=== PATIENT | female | born 1975 | race Caucasian/White ===

== ENCOUNTER 2016-12-16 14:28 | Emergency (ER) | payer MEDICAID ==
[~2016-12-16] VITALS: Ht 160 cm; Wt 66.2 kg
[~2016-12-16 14:28] MED LIST: AMOX500C2 PO; ASPI81CH43; BUTAPT; COROSUS EACH EAR; FLUD0.1T2 OR; HYDR12.56; MOTRIN PO; VARE0.5P4
[2016-12-16 15:11] LABS: Basophils # (auto) 0 uL; Basophils % (auto) 0.3 % (0.0-2.0); CONDITION Y; Eosinophils # (auto) 0.3 uL; Eosinophils % (auto) 3.8 % (0.0-7.0); Hematocrit 41.9 % (36.0-46.0); Hemoglobin 14.3 g/dL (12.2-16.2); Lymphocytes # (auto) 2.5 uL; Lymphocytes % (auto) 27.8 % (10.0-50.0); Mean Corpuscular Hemoglobin 31.8 pg (28.0-32.0); Mean Corpuscular Hgb Conc. 34.1 g/dL (32.0-36.0); Mean Corpuscular Volume 93.1 fL (80.0-100.0); Mean Platelet Volume 7.4 fL (7.4-10.4); Monocytes # (auto) 0.5 uL; Monocytes % (auto) 5.4 % (0.0-12.0); Neutrophils # (auto) 5.7 uL; Neutrophils % (auto) 62.7 % (37.0-80.0); Platelet Count (auto) 330 10^3/uL (140-450); Red Cell Distribution Width 13.4 % (11.6-16.0); White Blood Cell 9.1 10^3/uL (4.4-10.8)
[2016-12-16 15:23] LABS: Urine Bilirubin Negative (Negative); Urine Color Yellow (Yellow); Urine Glucose Normal (Normal); Urine Ketone Negative (Negative); Urine Mucus FEW (None Seen); Urine Nitrite Negative (Negative); Urine RBC 13 /hpf (0 - 4); Urine Squamous Epithelial Cell MOD /hpf (<5)
[2016-12-16 15:24] LABS: Urine Blood 1+ /uL (Negative)
[2016-12-16 15:42] LABS: Anion Gap 8 (5-15); Aspartate Aminotransferase 10 U/L (15-37); BUN/Creatinine Ratio 16.7; Blood Urea Nitrogen 11 mg/dL (7-18); Calcium 8.3 mg/dL (8.5-10.1); Carbon Dioxide 27 mmol/L (21-32); Chloride 109 mmol/L (98-107); GFR African American 126 mL/min; GFR Non-African American 104 mL/min; Glucose 85 mg/dL (74-106); Potassium 3.7 mmol/L (3.5-5.1); Sodium 144 mmol/L (136-145)
[2016-12-16 15:47] LABS: Alkaline Phosphatase 72 U/L (45-117); Bilirubin, Total 0.3 mg/dL (0.2-1.0); Total Protein 7.3 g/dL (6.4-8.2)
[2016-12-16] MEDS ORDERED: IOHEXOL 350 MG/ML 100ML IJ ONE (20:36)
[2016-12-16 20:53] VITALS: BP 117/68
== END 2016-12-16 23:19 | disposition home or self-care (01) ==
LOC: ER 14:28
DX: R06.00 Dyspnea, unspecified (principal); I10 Essential (primary) hypertension; Z95.0 Presence of cardiac pacemaker; Z79.82 Long term (current) use of aspirin; F17.210 Nicotine dependence, cigarettes, uncomplicated; R53.1 Weakness; I25.2 Old myocardial infarction; Z79.899 Other long term (current) drug therapy
CPT/HCPCS: 36415; 71020; 71260; 80053; 81001; 84484; 85025; 85379; 93005; 94761; 99285; Q9967

== ENCOUNTER 2018-05-15 17:50 | Emergency (ER) | payer MEDICAID ==
[~2018-05-15] VITALS: Ht 162.6 cm; Wt 64.4 kg
[2018-05-15 19:41] LABS: Basophils # (auto) 0.1 uL; Basophils % (auto) 0.7 % (0.0-2.0); Eosinophils # (auto) 0.5 uL; Eosinophils % (auto) 5.2 % (0.0-7.0); Hematocrit 42.9 % (36.0-46.0); Hemoglobin 14.7 g/dL (12.2-16.2); Lymphocytes % (auto) 33.6 % (10.0-50.0); Mean Corpuscular Hemoglobin 32.2 pg (28.0-32.0); Mean Corpuscular Hgb Conc. 34.3 g/dL (32.0-36.0); Mean Corpuscular Volume 93.8 fL (80.0-100.0); Monocytes # (auto) 0.5 uL; Monocytes % (auto) 5.6 % (0.0-12.0); Neutrophils # (auto) 4.9 uL; Neutrophils % (auto) 54.9 % (37.0-80.0); Nucleated Red Blood Cells % 0.1 %; Platelet Count (auto) 335 10^3/uL (140-450); Red Blood Cells 4.58 10^6/uL (4.0-5.20); Red Cell Distribution Width 13.2 % (11.8-14.3)
[2018-05-15] MEDS ORDERED: SODIUM CHLORIDE 0.9% 1,000 ML IVB ONE (19:45)
[2018-05-15 19:50] LABS: Urine WBC None Seen /hpf (0 - 5)
[2018-05-15 19:59] LABS: Albumin 4.2 g/dL (3.4-5.0); Anion Gap 8 (5-15); Calcium 8.7 mg/dL (8.5-10.1); Carbon Dioxide 26 mmol/L (21-32); Chloride 106 mmol/L (98-107); Glucose 89 mg/dL (74-106); Potassium 4.2 mmol/L (3.5-5.1); Sodium 140 mmol/L (136-145)
[2018-05-15 20:07] LABS: Urine Bacteria NONE SEEN /hpf (None Seen); Urine Blood 1+ /uL (Negative); Urine Specific Gravity 1.012 (1.001-1.035)
[2018-05-15 20:08] LABS: Alanine Aminotransferase 39 U/L (13-56); Alkaline Phosphatase 91 U/L (45-117); Aspartate Aminotransferase 15 U/L (15-37); BUN/Creatinine Ratio 18.1; Bilirubin, Total 0.3 mg/dL (0.2-1.0); Blood Urea Nitrogen 13 mg/dL (7-18); GFR African American 113 mL/min; GFR Non-African American 94 mL/min; Total Protein 8.1 g/dL (6.4-8.2)
[2018-05-15 20:18] LABS: INR 0.89 (0.9-1.15); Partial Thromboplastin Time 27.1 sec (23.78-33.04); Prothrombin Time 9.6 sec (9.27-12.13)
[2018-05-15] MEDS ORDERED: IBUPROFEN 600 MG TAB PO ONE (23:00)
[2018-05-16 00:31] VITALS: BP 111/68
== END 2018-05-16 01:25 | disposition home or self-care (01) ==
LOC: ER 17:50
DX: R07.9 Chest pain, unspecified (principal); R42 Dizziness and giddiness; I10 Essential (primary) hypertension; I25.2 Old myocardial infarction; F17.210 Nicotine dependence, cigarettes, uncomplicated; Z95.0 Presence of cardiac pacemaker
CPT/HCPCS: 36415; 71045; 80053; 81001; 81002; 83735; 83880; 84443; 84484; 85025; 85610; 85730; 93005; 94761; 96360; 99284; J7030

== ENCOUNTER 2022-12-26 16:49 | Emergency (ER) | payer MEDICAID ==
[~2022-12-26] VITALS: Ht 160 cm; Wt 75.0 kg
[~2022-12-26 16:49] MED LIST changes: -HYDR12.56; +HYDR12.59
[2022-12-26 17:20] VITALS: PULSE 60; O2SAT 96
[2022-12-26 17:26] VITALS: BP 120/52; RESP 18; TEMP 97.3; O2SAT 96
[2022-12-26 17:27] LABS: Basophils # (auto) 0.1 10 ^3/uL (0-0.2); Basophils % (auto) 1.1 % (0.0-2.0); Eosinophils # (auto) 0.5 10 ^3/uL (0-0.8); Eosinophils % (auto) 7.1 % (0.0-7.0); Hematocrit 41.4 % (36.0-46.0); Hemoglobin 14.2 g/dL (12.2-16.2); Lymphocytes % (auto) 39.6 % (10.0-50.0); Mean Corpuscular Hemoglobin 30.9 pg (28.0-32.0); Mean Corpuscular Hgb Conc. 34.2 g/dL (32.0-36.0); Mean Corpuscular Volume 90.5 fL (80.0-100.0); Monocytes # (auto) 0.5 10 ^3/uL (0-1.3); Neutrophils # (auto) 3.5 10 ^3/uL (1.6-8.6); Neutrophils % (auto) 46.2 % (37.0-80.0); Nucleated Red Blood Cells % 0.1 %; Red Blood Cells 4.58 10^6/uL (4.0-5.20); Red Cell Distribution Width 13.4 % (11.8-14.3); White Blood Cell 7.6 10^3/uL (4.4-10.8)
[2022-12-26 17:43] LABS: Calcium 9.4 mg/dL (8.5-10.1); Magnesium 2.5 mg/dL (1.6-2.6); Potassium 4.1 mmol/L (3.5-5.1)
[2022-12-26 17:47] LABS: BUN/Creatinine Ratio 15.5 (10.0-20.0); Bilirubin, Total 0.3 mg/dL (0.2-1.0)
[2022-12-26 18:10] VITALS: PULSE 61
[2022-12-26 18:58] LABS: Urine WBC None Seen /hpf (0 - 5)
[2022-12-26 19:12] LABS: Urine Bacteria NONE SEEN /hpf (None Seen); Urine Blood TRACE /uL (Negative); Urine Hyaline Cast FEW /lpf (0 - 2); Urine Specific Gravity 1.004 (1.001-1.035)
[2022-12-26] MEDS ORDERED: MELO-335 PO (19:23)
[2022-12-26] MEDS ORDERED: CYCL-839 PO (19:23)
[2022-12-26] MEDS ORDERED: CYCLOBENZAPRINE HCL 10 MG TAB PO ONE (19:30)
== END 2022-12-26 19:58 | disposition home or self-care (01) ==
LOC: ER 16:49
DX: M94.0 Chondrocostal junction syndrome [Tietze] (principal); I10 Essential (primary) hypertension; Z79.82 Long term (current) use of aspirin; Z79.899 Other long term (current) drug therapy
CPT/HCPCS: 36415; 71045; 80053; 81001; 83735; 84484; 85025; 93005

== ENCOUNTER 2023-03-29 18:56 | Inpatient (IN) | payer MEDICAID ==
[~2023-03-29] VITALS: Ht 160 cm; Wt 73.9 kg
[~2023-03-29 18:56] MED LIST changes: +CYCL-839 PO; +MELO-335 PO
[2023-03-29 18:58] VITALS: BP 106/66; PULSE 84; RESP 18; O2SAT 97
[2023-03-29] MEDS ORDERED: PANTOPRAZOLE 40 MG/10 ML VIAL INJ IV ONE ×2 (19:30→20:34)
[2023-03-29] MEDS ORDERED: SODIUM CHLORIDE 0.9% 1,000 ML IV ONE (19:30)
[2023-03-29 20:01] LABS: Basophils # (auto) 0.1 10 ^3/uL (0-0.2); Eosinophils # (auto) 0.4 10 ^3/uL (0-0.8); Eosinophils % (auto) 5.5 % (0.0-7.0); Hematocrit 41.2 % (36.0-46.0); Lymphocytes # (auto) 3.5 10 ^3/uL (0.4-5.4); Lymphocytes % (auto) 44.8 % (10.0-50.0); Mean Corpuscular Hemoglobin 31.5 pg (28.0-32.0); Mean Corpuscular Hgb Conc. 33.8 g/dL (32.0-36.0); Monocytes # (auto) 0.5 10 ^3/uL (0-1.3); Monocytes % (auto) 5.9 % (0.0-12.0); Neutrophils # (auto) 3.3 10 ^3/uL (1.6-8.6); Neutrophils % (auto) 42.8 % (37.0-80.0); Nucleated Red Blood Cells % 0.1 %; Red Blood Cells 4.43 10^6/uL (4.0-5.20); Red Cell Distribution Width 13.6 % (11.8-14.3); White Blood Cell 7.8 10^3/uL (4.4-10.8)
[2023-03-29 20:23] LABS: Alanine Aminotransferase 20 U/L (7-40); Albumin 4.7 g/dL (3.2-4.8); Alkaline Phosphatase 88 U/L (46-116); Anion Gap 7 (5-15); Aspartate Aminotransferase 9 U/L (13-40); BUN/Creatinine Ratio 9.7 (10.0-20.0); Bilirubin, Total 0.2 mg/dL (0.2-1.0); Blood Urea Nitrogen 7 mg/dL (9-23); Calcium 9.8 mg/dL (8.5-10.1); Carbon Dioxide 28 mmol/L (20-30); Chloride 108 mmol/L (98-107); Glucose 104 mg/dL (74-106); Potassium 4.2 mmol/L (3.5-5.1); Sodium 143 mmol/L (136-145); Total Protein 7.1 g/dL (5.7-8.2)
[2023-03-29 20:44] LABS: Urine Bacteria FEW /hpf (None Seen); Urine Blood 1+ /uL (Negative); Urine Clarity HAZY (Clear); Urine Color Yellow (Yellow); Urine Mucus FEW (None Seen); Urine Protein, UAD Negative (Negative); Urine Specific Gravity 1.021 (1.001-1.035); Urine Urobilinogen Normal (Negative); Urine WBC 1 /hpf (0 - 5); Urine pH 5.5 (5.0-8.0)
[2023-03-29] MEDS ORDERED: ACETAMINOPHEN 325 MG TAB PO PRN (22:45)
[2023-03-29] MEDS ORDERED: MORPHINE SULFATE INJ 2 MG/ml SYRG IV PRN (22:45)
[2023-03-29] MEDS ORDERED: ONDANSETRON HCL 4 MG/2 ML VIAL IV PRN (22:45)
[2023-03-29] MEDS ORDERED: NITROGLYCERIN 0.4 MG SL TAB SL PRN (22:45)
[2023-03-29] MEDS ORDERED: DOCUSATE SOD 100 MG CAP PO PRN (22:45)
[2023-03-29 23:28] LABS: INR 0.97 (0.9-1.15); Partial Thromboplastin Time 27.7 SEC (24.5-34.5); Prothrombin Time 10.2 sec (9.3-11.8)
[2023-03-30] MEDS ORDERED: PANTOPRAZOLE 40 MG/10 ML VIAL INJ IV SCH (10:00)
== END 2023-03-29 22:49 | disposition left against medical advice (07) | DRG 253 ==
LOC: ER 18:56 → TELE 22:41 → ER 22:49 → TELE 22:49
PROVIDERS: ADMIT Nurse Practitioner Family; ATTEND Nurse Practitioner Family
DX: K92.2 Gastrointestinal hemorrhage, unspecified (principal); F17.210 Nicotine dependence, cigarettes, uncomplicated; Z53.29 Procedure and treatment not carried out because of patient's decision for other reasons; F41.9 Anxiety disorder, unspecified; I10 Essential (primary) hypertension; Z63.4 Disappearance and death of family member; Z80.0 Family history of malignant neoplasm of digestive organs; Z80.3 Family history of malignant neoplasm of breast; Z95.0 Presence of cardiac pacemaker; I25.2 Old myocardial infarction
CPT/HCPCS: 36415; 74177; 80053; 81001; 81025; 83605; 83690; 84702; 85025; 85610; 85730; C9113; G0378

== ENCOUNTER 2024-06-27 15:30 | Inpatient (IN) | payer MEDICAID ==
[~2024-06-27] VITALS: Ht 160 cm; Wt 79.0 kg
[~2024-06-27 15:30] MED LIST changes: +BUTA-259; -BUTAPT; -MELO-335 PO; +MELO15TA29 PO
--- NOTE | 2024-06-27 16:19 | ED.PDOC ---
General HPI Comments 48 year old female presents to the ED with chief complaint of flank pain. Patient reports that she has been experiencing right sided flank pain with associated dysuria and difficulty urinating since September of 2023. Patient relays that she is unable to urinate well when sitting, however, once she stands up, she will urinate on herself. Patient states she had history of a nephrectomy and kidney poison years ago due to kidney cyst. Patient denies any fever, chills, abdominal pain, hematuria, dizziness, or chest pain. Chief Complaint: Urinary Time Seen by MD: 16:13 Primary Care Provider: SARA Reviewed notes: Nurses Notes, Medications, Allergies Allergies: Coded Allergies: NO KNOWN ALLERGIES (Unverified , 01/14/10) Home Meds Active Scripts Meloxicam (Meloxicam) 15 Mg Tab, 15 MG PO DAILYPRN PRN, #10 TAB Prov:ANIL COMBS MD 12/26/22 Cyclobenzaprine Hcl (Cyclobenzaprine Hcl) 10 Mg Tab, 10 MG PO Q8HPRN PRN, #20 TAB Prov:ANIL COMBS MD 12/26/22 Reported Medications Haesjyek-Piwgztrye-Kf (Otic) (Cortisporin Otic Susp) [address], 1 DROP EACH EAR BID, #10 09/04/13 Amoxicillin Trihydrate (Amoxicillin) 500 Mg Cap, 055720 MG PO for EP, #20 09/04/13 [Fioricet Tablet1 Tab] (FIORICET TABLET) 1 TAB TB No Conflict Check, TAB 02/01/13 [Chantix Startin0.5 &] (CHANTIX STARTING MONTH PA) 0.5 & DORYS No Conflict Check, & 02/01/13 Hydrochlorothiazide (Hydrochlorothiazide) 12.5 Mg Cap 01/17/12 Fludrocortisone Acetate (Fludrocortisone Acetate) 0.1 Mg Tab, 0.1 MG OR DAILY 12/31/11 Aspirin (Asa) 81 Mg Ch 10/20/11 [Motrin] No Conflict Check, 800 MG PO PRN, #1 04/23/11 Information Source: Patient Mode of Arrival: Ambulatory Severity: Moderate Inability to void: Moderate Timing: Days Duration: Since onset Has not urinated for: Hours Prehospital treatment: None Onset: Spontaneous Symptoms: Dysuria, Inability to void History of: None Location: (R) Flank Location male: R Scrotum Modifying factors: None associated signs and symptoms: Flank Pain, Dysuria, Inability to Void Past Medical History PAST MEDICAL HISTORY: Anxiety, Depression, HTN, [place] Surgical History: , Pacemaker COMMERCIAL RELATIONSHIP MANAGER History: No Pertinent COMMERCIAL RELATIONSHIP MANAGER History Family History Family History: No family hx of Cancer Social History Smoker: Cigarettes, Less Than 1 Pack/Day Alcohol: Denies ETOH Use Drugs: Denies Drug Use Lives In: Home Constitutional: denies: chills, diaphoresis, fatigue, fever, malaise, sweats, weakness, others EENTM: denies: blurred vision, double vision, ear bleeding, ear discharge, ear drainage, ear pain, ear ringing, eye pain, eye redness, hearing loss, mouth pain, mouth swelling, nasal discharge, nose bleeding, nose congestion, nose pain, photophobia, tearing, throat pain, throat swelling, voice changes, others Respiratory: denies: cough, hemoptysis, orthopnea, SOB at rest, shortness of breath, SOB with excertion, stridor, wheezing, others Cardiovascular: denies: chest pain, dizzy spells, diaphoresis, Dyspnea on exertion, edema, irregular heart beat, left arm pain, lightheadedness, palpitations, PND, syncope, others Gastrointestinal: denies: abdomen distended, abdominal pain, blood streaked bowels, constipated, diarrhea, dysphagia, difficulty swallowing, hematemesis, melena, nausea, poor appetite, poor fluid intake, rectal bleeding, rectal pain, vomiting, others Genitourinary: reports: dysuria, flank pain, others (Difficulty urinating); denies: abnormal vagina bleeding, burning, dyspareunia, frequency, hematuria, incontinence, pain, , vagina discharge, urgency Neurological: denies: dizziness, fainting, headache, left sided numbness, left sided weakness, numbness, paresthesia, pre-existing deficit, right sided numbness, right sided weakness, seizure, speech problems, tingling, tremors, weakness, others Musculoskeletal: denies: back pain, gout, joint pain, joint swelling, muscle pain, muscle stiffness, neck pain, others Integumetry: denies: bruises, change in color, change in hair/nails, dryness, laceration, lesions, lumps, rash, wounds, others Allergic/Immunocompromised: denies: Difficulty Healing, Frequent Infections, Hives, Itching, others Hematologic/Lymphatic: denies: anemia, blood clots, easy bleeding, easy bruising, swollen glands, others Endocrine: denies: excessive hunger, excessive sweating, excessive thirst, excessive urination, flushing, intolerance to cold, intolerance to heat, unexplained weight gain, unexplained weight loss, others Psychiatric: denies: anxiety, bipolar disorder, depression, hopeless, panic disorder, schizophrenia, sleepless, suicidal, others All Other Systems: Reviewed and Negative Physical Exam General Appearance: Moderate Distress, Normal HEENT: Normal ENT Inspection, PERRL/EOMI Neck: Full Range of Motion, Non-Tender, Normal, Normal Inspection Respiratory: Chest Non-Tender, Lungs Clear, No Accessory Muscle Use, No Respiratory Distress, Normal Breath Sounds Cardiovascular: No Edema, No JVD, No Murmur, No Gallop, Normal Peripheral Pulses, Regular Rate/Rhythm Breast Exam: Deferred Gastrointestinal: No Organomegaly, Non Tender, No Pulsatile Mass, Normal Bowel Sounds, Soft Genitalia: Deferred Pelvic: Deferred Rectal: Deferred Extremities: No calf tenderness, Normal capillary refill, Normal inspection, Normal range of motion, Non-tender, No pedal edema Musculoskeletal : Apperance: Normal 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 Was a procedure done?: No Differential Diagnosis Kidney stone (Female): Musculoskeletal pain, Urinary obstruction, Urolithiasis X-Ray, Labs, Meds, VS Vital Signs Date Time Temp Pulse Resp B/P (MAP) Pulse Ox O2 Delivery O2 Flow Rate FiO2 06/27/24 16:04 97.9 66 18 132/58 (82) 96 Patient alert. Complaining of flank pain. She is in tears. Vitals stable. Problem urinating. Possible kidney stone. She has a history of urostomy. Establish intravenous access. Was given fluids. Was given Toradol. Explained to the patient. Continue cardiac monitoring. Time of 1ST Reevaluation: 17:13 Reevaluation 1ST: Unchanged Patient Education/Counseling: Diagnosis, Treatment Family Education/Counseling: Diagnosis, Treatment Departure 1 Departure Time of Disposition: 16:24 Impression: Primary Impression: Acute abdominal pain Additional Impression: Urinary hesitancy Disposition: ADMITTED INPATIENT Admit to: Med Surg Condition: Guarded Critical Care Note Critical Care Time?: No Stability Stability form required: No Heart Score Heart Score: Heart Score Response (Comments) Value History N/A 0 EKG N/A 0 Age N/A 0 Risk Factors N/A 0 Troponin N/A 0 Total 0 I personally scribed for KATHIA VALDIVIA MD ([email or web address]) on 06/27/24 at 16:19. Electronically submitted by Kuldeep Moses ([email or web address]). KATHIA VALDIVIA MD Jun 27, 2024 16:19
[2024-06-27 16:37] LABS: Basophils # (auto) 0.1 10 ^3/uL (0-0.2); Basophils % (auto) 1.1 % (0.0-2.0); Eosinophils # (auto) 0.4 10 ^3/uL (0-0.8); Eosinophils % (auto) 4.4 % (0.0-7.0); Hematocrit 40.5 % (36.0-46.0); Lymphocytes # (auto) 3.2 10 ^3/uL (0.4-5.4); Lymphocytes % (auto) 35.1 % (10.0-50.0); Mean Corpuscular Hemoglobin 31.7 pg (28.0-32.0); Mean Corpuscular Hgb Conc. 34.5 g/dL (32.0-36.0); Monocytes # (auto) 0.7 10 ^3/uL (0-1.3); Monocytes % (auto) 7.2 % (0.0-12.0); Neutrophils # (auto) 4.8 10 ^3/uL (1.6-8.6); Neutrophils % (auto) 52.2 % (37.0-80.0); Nucleated Red Blood Cells % 0.2 %; Platelet Count (auto) 336 10^3/uL (140-450); Red Blood Cells 4.41 10^6/uL (4.0-5.20); Red Cell Distribution Width 13.3 % (11.8-14.3); White Blood Cell 9.1 10^3/uL (4.4-10.8)
[2024-06-27 16:49] LABS: Anion Gap 5 (5-15); Carbon Dioxide 29 mmol/L (20-31); Chloride 106 mmol/L (98-107); Potassium 4.2 mmol/L (3.5-5.1); Sodium 140 mmol/L (136-145)
[2024-06-27 16:53] LABS: Urine Bacteria None Seen /hpf (None Seen)
[2024-06-27 16:55] LABS: BUN/Creatinine Ratio 18.2 (10.0-20.0); Blood Urea Nitrogen 14 mg/dL (9-23); Glucose 85 mg/dL (74-106)
[2024-06-27 17:01] LABS: Calcium 10.7 mg/dL (8.7-10.4)
[2024-06-27 17:13] LABS: Urine Blood 1+ /uL (Negative); Urine Clarity Clear (Clear); Urine Color Light-Yellow (Yellow); Urine Protein, UAD Negative (Negative); Urine Squamous Epithelial Cell FEW /hpf (<5); Urine Urobilinogen Normal (Negative); Urine WBC 1 /hpf (0 - 5)
--- NOTE | 2024-06-27 18:05 | DVH ---
CLINICAL HISTORY: Kidney stone TECHNIQUE: CT of the abdomen and pelvis was performed without intravenous contrast. This exam was per formed according to our departmental dose optimization program. Up-to-date CT equipment and radiation dose reduction techniques are utilized as appropriate. [Radimetrics Exposure Report] CTDI: [CTDIvol] DLP: 810.39 WID: COMPARISON: CT abdomen and pelvis from 03/29/2023 FINDINGS: Lower Thorax: Partially imaged pacer leads in the right atrium and right ventricle. Normal-sized hear t. Minimal linear bibasilar scarring. Lung bases are otherwise clear. Liver and Biliary system: Normal-sized liver. There is a hypodense lesion in segment 4B of the liver on series 2, image 23, not optimally evaluated without contrast. The gallbladder is normal caliber. There is no biliary ductal dilatation. Spleen: Unremarkable. Adrenal Glands and Kidneys: Normal adrenal glands. There is no hydronephrosis or nephrolithiasis. The re is right lower pole renal scarring. Pancreas and Retroperitoneum: Unremarkable. Aorta and Major Vessels: Aortoiliac vessels are normal in caliber with mild calcified atherosclerotic plaque. Bowel, Mesentery and Peritoneal space: The small and large bowel loops are normal in caliber. Normal appendix. No free air or fluid collection. Pelvis: Urinary bladder is mildly thickened. The uterus and ovaries are grossly unremarkable. There i s no pelvic lymphadenopathy. Abdominal wall and Osseous Structures: No destructive osseous lesion. IMPRESSION: 1. Mild bladder wall thickening, nonspecific. Correlate with urinalysis if there is clinical concern for cystitis. 2. Otherwise, No noncontrast evidence of acute abnormality.
[2024-06-27] MEDS ORDERED: ONDANSETRON HCL 4 MG/2 ML VIAL IV PRN (23:00)
[2024-06-27] MEDS ORDERED: KETOROLAC TROMETH 30 MG/ML 1ML VIAL IV PRN (23:00)
[2024-06-27 23:20] VITALS: PULSE 62; RESP 18; O2SAT 96
[2024-06-27 23:25] LABS: Amphetamine Screen, Urine Neg (NEGATIVE); Barbiturate Scree,Urine Neg (NEGATIVE); Benzodiazephine Screen, Urine Neg (NEGATIVE); Cannabinoid Screen, Urine Neg (NEGATIVE); Cocaine Screen, Urine Neg (NEGATIVE); Opiate Scree,Urine Neg (NEGATIVE); Phencyclidine Screen, Urine Neg (NEGATIVE)
[2024-06-27] MEDS: cefTRIAXone 1GM/50ML D5W 50 ML IV ONE (23:38)
[2024-06-27] MEDS: IBUPROFEN 600 MG TAB PO PRN (23:39)
[2024-06-28] VITALS (8 sets, daily range): BP systolic 94–142; BP diastolic 46–79; PULSE 58–93; RESP 17–18; TEMP 97.7–99.1; O2SAT 95–97
[2024-06-28] MEDS: SODIUM CHLORIDE 0.9% 1,000 ML IV ONE (02:19)
--- NOTE | 2024-06-28 03:20 | DVHHPRES ---
History of Present Illness Resident Creating Document: GREG PILLAI RESDIENT History of Present Illness This is a 48-year-old male with past medical history of renal cyst, pacemaker and anxiety came to the hospital because of difficulty in urination and flank pain. Per patient, she has right-sided flank which is associated with dysuria, difficulty urination, urgency, and feeling of incomplete bladder emptying after micturition. The symptom has started 3 months back which has progressively worsened. Patient denies fever, chills, abdominal pain, hematuria, and any recent changes in bowel movement. PMHx: Has history of renal cyst during childhood, status post pacemaker (per patient, placed due to bradycardia), anxiety PSHx: 3 times Family history: Cancer history in the family, colon cancer in ankle, cancer in mom Social history: Patient lives with family at home, current smoker, denies alcohol or any other drug use Home medication: Paroxetine 10 mg for anxiety Allergic history: No known allergies Review of Systems Review of Systems General: patient denies fever, fatigue, weaknes, sweating, any recent changes in appetite and weight HEENT: No headaches, visiual changes, hearing loss, tinnitus, nasal congestion and discharge, and sore throat. Cardiovascular: Denies chest pain, palpitations, dyspnea on exertion, orthopnea, or claudication. Respiratory: No cough, and wheezing. Gastrointestinal: Reports right flank pain Genitourinary: Reports dysuria, frequency, urgency Endocrine: No heat or cold intolerance, polydipsia, polyuria, and polyphagia. Neurological: No dizziness, extremity weakness and numbness, tremors, gait disturbance, seizures, and memory impairment. Psychiatric: Denies depression, anxiety,or insomnia. Musculoskeletal: Denies neck pain, stiffness and swelling, back pain, muscle weakness, joint pain, stiffness, swelling, or limited range of motion. Allergies: Coded Allergies: NO KNOWN ALLERGIES (Unverified , 01/14/10) Medications Current Medications Medications Dose Ordered Sig/Linh Route Start Time Stop Time Status Last Admin Dose Admin Ceftriaxone Sodium 50 ml @ 100 mls/hr DAILY@2100 IV 06/28/24 21:00 Ondansetron HCl 4 mg Q4HPRN PRN IV 06/27/24 23:00 Ketorolac Tromethamine 15 mg Q6HPRN PRN IV 06/27/24 23:00 07/02/24 22:59 Ibuprofen 600 mg Q8HP PRN PO 06/27/24 23:00 06/27/24 23:39 600 MG Exam Vital Signs Vital Signs Date Time Temp Pulse Resp B/P (MAP) Pulse Ox O2 Delivery O2 Flow Rate FiO2 06/27/24 23:20 97.6 62 18 115/53 (73) 96 97.6 06/27/24 23:20 Room Air* 0 21 Labs/Xrays Labs Test 06/27/24 16:51 06/27/24 16:19 Range/Units Urine Color Light-yellow Yellow Urine Clarity Clear Clear Urine pH 7.0 5.0-9.0 Urine Specific [place] 1.020 1.001-1.035 Urine Protein Negative Negative Urine Ketones Negative Negative Urine Blood 1+ H Negative /uL Urine Nitrite Negative Negative Urine Bilirubin Negative Negative Urine Urobilinogen Normal Negative mg/dL Urine Leukocyte Esterase Negative Negative /uL Urine RBC 17 0 - 4 /hpf Urine WBC 1 0 - 5 /hpf Urine Squamous Epithelial Cells Few <5 /hpf Urine Bacteria None seen None Seen /hpf Urine Glucose Normal Normal mg/dL Urine Opiates Screen Neg NEGATIVE Urine Fentanyl Screen Neg NEGATIVE Urine Barbiturates Screen Neg NEGATIVE Urine Phencyclidine Screen Neg NEGATIVE Urine Amphetamines Screen Neg NEGATIVE Urine Benzodiazepines Screen Neg NEGATIVE Urine Cocaine Screen Neg NEGATIVE Urine Cannabinoids Screen Neg NEGATIVE White Blood Count 9.1 4.4-10.8 10^3/uL Red Blood Count 4.41 4.0-5.20 10^6/uL Hemoglobin 14.0 12.2-16.2 g/dL Hematocrit 40.5 36.0-46.0 % Mean Corpuscular Volume 92.0 80.0-100.0 fL Mean Corpuscular Hemoglobin 31.7 28.0-32.0 pg Mean Corpuscular Hemoglobin Concent 34.5 32.0-36.0 g/dL Red Cell Distribution Width 13.3 11.8-14.3 % Platelet Count 336 140-450 10^3/uL Mean Platelet Volume 7.5 6.9-10.8 fL Neutrophils (%) (Auto) 52.2 37.0-80.0 % Lymphocytes (%) (Auto) 35.1 10.0-50.0 % Monocytes (%) (Auto) 7.2 0.0-12.0 % Eosinophils (%) (Auto) 4.4 0.0-7.0 % Basophils (%) (Auto) 1.1 0.0-2.0 % Neutrophils # (Auto) 4.8 1.6-8.6 10 ^3/uL Lymphocytes # (Auto) 3.2 0.4-5.4 10 ^3/uL Monocytes # (Auto) 0.7 0-1.3 10 ^3/uL Eosinophils # (Auto) 0.4 0-0.8 10 ^3/uL Basophils # (Auto) 0.1 0-0.2 10 ^3/uL Nucleated Red Blood Cells 0.2 % Sodium Level 140 136-145 mmol/L Potassium Level 4.2 3.5-5.1 mmol/L Chloride Level 106 98-107 mmol/L Carbon Dioxide Level 29 20-31 mmol/L Anion Gap 5 5-15 Blood Urea Nitrogen 14 9-23 mg/dL Creatinine 0.77 0.550-1.02 mg/dL Glomerular Filtration Rate Calc 94 >90 mL/min BUN/Creatinine Ratio 18.2 10.0-20.0 Serum Glucose 85 74-106 mg/dL Calcium Level 10.7 H 8.7-10.4 mg/dL Assessment/Plan Assessment/Plan Possible interstitial cystitis CT scan shows, mild bladder wall thickening Urinalysis within normal range Urine culture Injection ceftriaxone IV normal saline Asymptomatic hypercalcemia History of kidney stone and renal cysts Anxiety Continue paroxetine 10 mg DIET: Regular DVT PROPHYLAXIS: Patient is ambulatory, no need for anticoagulant CODE STATUS: Goal of care discussed for more than 27 minute DNR DISPOSITION: Med/surge Patient's status discussed with the patient. Case discussed with Dr. Lazo Plan discussed with: Patient, Other (RN) Date of Service: Jun 27, 2024 Billing Provider: POWER LAZO MD Common Visit Codes: [id number] INP/OBS CARE (HIGH) GREG PILLAI RESDIENT Jun 28, 2024 03:20 POWER LAZO MD Jun 28, 2024 11:40
[2024-06-28] MEDS ORDERED: PAR20T PO (04:34)
[2024-06-28 07:48] LABS: Basophils # (auto) 0.1 10 ^3/uL (0-0.2); Basophils % (auto) 0.8 % (0.0-2.0); Eosinophils # (auto) 0.6 10 ^3/uL (0-0.8); Eosinophils % (auto) 6.5 % (0.0-7.0); Hematocrit 41.6 % (36.0-46.0); Hemoglobin 14.2 g/dL (12.2-16.2); Lymphocytes # (auto) 2.8 10 ^3/uL (0.4-5.4); Lymphocytes % (auto) 30.4 % (10.0-50.0); Mean Corpuscular Hemoglobin 31.4 pg (28.0-32.0); Mean Corpuscular Hgb Conc. 34.2 g/dL (32.0-36.0); Mean Corpuscular Volume 91.8 fL (80.0-100.0); Monocytes # (auto) 0.7 10 ^3/uL (0-1.3); Monocytes % (auto) 7.1 % (0.0-12.0); Neutrophils # (auto) 5.1 10 ^3/uL (1.6-8.6); Neutrophils % (auto) 55.2 % (37.0-80.0); Platelet Count (auto) 344 10^3/uL (140-450); Red Blood Cells 4.53 10^6/uL (4.0-5.20); Red Cell Distribution Width 13.5 % (11.8-14.3); White Blood Cell 9.2 10^3/uL (4.4-10.8)
[2024-06-28 07:58] LABS: Chloride 107 mmol/L (98-107); Potassium 4.2 mmol/L (3.5-5.1); Sodium 141 mmol/L (136-145)
[2024-06-28 07:59] LABS: Anion Gap 4 (5-15); Calcium 10.1 mg/dL (8.7-10.4); Carbon Dioxide 30 mmol/L (20-31)
[2024-06-28 08:04] LABS: Glucose 94 mg/dL (74-106)
[2024-06-28 08:30] LABS: BUN/Creatinine Ratio 17.6 (10.0-20.0); Blood Urea Nitrogen 13 mg/dL (9-23)
--- NOTE | 2024-06-28 10:56 | DVH ---
INDICATION: Pain TECHNIQUE: Multiple real-time sonographic images of the kidneys and bladder were obtained. COMPARISON: None FINDINGS: The right kidney measures 10.1 cm in length, which is normal in size. There is normal echogenicity of the right kidney. No hydronephrosis. Portions of the visualized right renal vein appear patent. The left kidney measures 10 0.6 cm in length, which is normal in size. There is normal echogenicity o f the left kidney. No hydronephrosis. No large intraluminal masses are seen in the bladder. Prior to voiding the bladder volume measures volume 151 cc. IMPRESSION: 1. Normal sonographic appearance of the kidneys. No hydronephrosis.
[2024-06-28] MEDS: IBUPROFEN 600 MG TAB PO SCH (13:11)
--- NOTE | 2024-06-28 17:41 | DVHPNRES ---
Progress Note Date Seen: Jun 28, 2024 Resident Creating Document: EDUARDO VALVERDE RESIDENT Medical Necessity Reason Pt with a Central, PICC or Fol: No Subjective Review of Systems This is a 48-year-old male with past medical history of renal cyst, pacemaker and anxiety came to the hospital because of difficulty in urination and flank pain. Per patient, she has right-sided flank which is associated with dysuria, difficulty urination, urgency, and feeling of incomplete bladder emptying after micturition. The symptom has started 3 months back which has progressively worsened. Constitutional: No: Fever, Chills, Sweats, Weakness, Malaise, Other Eyes: No: Pain, Vision change, Conjunctivae inflammation, Eyelid inflammation, Other, Redness ENT: No: Ear pain, Ear discharge, Nose pain, Nose discharge, Nose congestion, Mouth pain, Mouth swelling, Throat pain, Throat swelling, Other Respiratory: No Shortness of breath, Cough, Dry,Wheezing, Hemoptysis, Pleuritic Pain, Sputum, Wheezing, Other Cardiovascular: No: Chest Pain, Palpitations, Orthopnea, Paroxysmal Noc. Dyspnea, Edema, Lt Headedness, Other Gastrointestinal: No: Nausea, Vomiting, Abdominal Pain, Diarrhea, Constipation, Melena, Hematochezia, Other Genitourinary: Dysuria, frequency, urgency. Musculoskeletal: Rt flank pain, No: other, neck pain, shoulder pain, arm pain, back pain, hand pain, leg pain, foot pain Neurological:; No: Weakness, Numbness, Incoordination, Change in speech, Confusion, Seizures. Objective vital signs Vital Sign Date Time Temp Pulse Resp B/P (MAP) Pulse Ox O2 Delivery O2 Flow Rate FiO2 06/28/24 16:59 98.6 61 18 111/71 (84) 96 98.6 06/28/24 08:25 Room Air* 0 21 Total Intake and Output 06/27/24 06/27/24 06/28/24 15:00 23:00 07:00 Intake Total 0 ml Output Total 0 ml Balance 0 ml medications Current Medications Medications Dose Ordered Sig/Linh Route Start Time Stop Time Status Last Admin Dose Admin Ceftriaxone Sodium 50 ml @ 100 mls/hr DAILY@2100 IV 06/28/24 21:00 Ondansetron HCl 4 mg Q4HPRN PRN IV 06/27/24 23:00 Ketorolac Tromethamine 15 mg Q6HPRN PRN IV 06/27/24 23:00 07/02/24 22:59 Ibuprofen 400 mg Q8HR PO 06/28/24 10:00 06/28/24 13:11 400 MG Amitriptyline HCl 10 mg HS PO 06/28/24 22:00 Pantoprazole Sodium 40 mg DAILY@0600 PO 06/29/24 06:00 Examination Physical examination: General Appearance: Alert, Oriented X3, Cooperative, No acute distress HEENT: Atraumatic, PERRLA, EOMI, Mucous membrane moist/pink Respiratory: Clear to auscultation, Normal air movement Cardiovascular: Regular rate, Normal S1, Normal S2, No murmurs, no chest wall tenderness Abdominal: Normal bowel sounds, Soft, tenderness in the rt flank, No hepatospenomegaly, No masses Extremities: No clubbing, No cyanosis, No edema, Normal pulses, No tenderness/swelling Skin: No rashes, No breakdown, No significant lesion Neuro: Normal gait, Normal speech, Strength at 5/5 X4 ext, Normal tone, Sensation intact, grossly intact cranial nerves. Psych/Mental Status: Mental status NL, Mood NL laboratory and microbiology Laboratory Tests 06/28/24 06:46 Test 06/28/24 06:46 Range/Units Serum Glucose 94 74-106 mg/dL Labs and/or images reviewed: Labs reviewed by me, Image(s) reviewed by me Problem List/Assessment/Plan Problem List/Assessment/Plan Assessment/Plan Possible interstitial cystitis CT scan shows, mild bladder wall thickening Urinalysis within normal range Pending Urine culture Renal U/S revealed normal study. - IV ceftriaxone 1 gm daily - Ibuprofen 400 mg Q8hr - Amitriptyline 10 mg p.o. at hs Asymptomatic hypercalcemia resolved History of Anxiety Continue paroxetine 5 mg daily. DIET: Regular DVT PROPHYLAXIS: Patient is ambulatory, no need for anticoagulant CODE STATUS: Goal of care discussed for more than 27 minute DNR DISPOSITION: Med/surge Plan discussed with Plan discussed with: Patient, Other My Orders My Orders Orders - EDUARDO VALVERDE RESIDENT Procedure Category Date Status Time Covid19 Antigen [facility] LAB 06/28/24 Logged Rapid Influenza A&B LAB 06/28/24 Logged 09:27 Bladder Scan ORDERS 06/28/24 Transmitted 09:52 Ibuprofen Tablet PHA 06/28/24 In Process (Motrin Tablet) 10:00 Amitriptyline Hcl PHA 06/28/24 In Process Tablet (Elavil Tablet) 22:00 Pantoprazole Tablet PHA 06/29/24 In Process (Protonix Tablet) 06:00 Kidney US 06/28/24 Resulted 09:57 Date of Service: Jun 28, 2024 Billing Provider: VIKY BUITRAGO MD Common Visit Codes: [id number] INP/OBS CARE(HIGH) EDUARDO VALVERDE RESIDENT Jun 28, 2024 17:41 VIKY BUITRAGO MD Jul 02, 2024 16:22
[2024-06-28] MEDS: cefTRIAXone 1GM/50ML D5W 50 ML IV SCH (21:28)
[2024-06-28] MEDS: AMITRIPTYLINE HCL 10 MG TAB PO SCH (21:29)
[2024-06-28 22:15] LABS: COVID19 ANTIGEN SOFIA FIA NEGATIVE (NEGATIVE); Rapid Influenza A Negative (Negative); Rapid Influenza B Negative (Negative)
[2024-06-29 01:00] VITALS: BP 98/51; PULSE 67; RESP 18; TEMP 98.3; O2SAT 94
[2024-06-29 05:00] VITALS: BP 93/57; PULSE 58; RESP 18; TEMP 98.3; O2SAT 93
[2024-06-29] MEDS: PANTOPRAZOLE 40 MG TAB PO SCH (06:31)
[2024-06-29 06:34] VITALS: BP 117/75
[2024-06-29 08:10] VITALS: PULSE 61; RESP 18
[2024-06-29] MEDS ORDERED: CEPH250C PO ×2 (08:48→11:09)
[2024-06-29] MEDS ORDERED: AMIT10TA12 PO (08:48)
--- NOTE | 2024-06-29 08:54 | DVHDSRES ---
Discharge Summary Date of Admission Resident Creating Document: EDUARDO VALVERDE RESIDENT Jun 27, 2024 at 22:52 Date of Discharge: Jun 29, 2024 Admitting Diagnosis Possible interstitial cystitis Wounds: No wound was present Labs/Diagnostic Data: Laboratory Results Test 06/28/24 20:50 06/28/24 06:46 06/27/24 16:51 Influenza Type A Antigen Negative (Negative) Influenza Type B Antigen Negative (Negative) SARS-CoV-2 Antigen (Rapid) Negative (NEGATIVE) White Blood Count 9.2 10^3/uL (4.4-10.8) Red Blood Count 4.53 10^6/uL (4.0-5.20) Hemoglobin 14.2 g/dL (12.2-16.2) Hematocrit 41.6 % (36.0-46.0) Mean Corpuscular Volume 91.8 fL (80.0-100.0) Mean Corpuscular Hemoglobin 31.4 pg (28.0-32.0) Mean Corpuscular Hemoglobin Concent 34.2 g/dL (32.0-36.0) Red Cell Distribution Width 13.5 % (11.8-14.3) Platelet Count 344 10^3/uL (140-450) Mean Platelet Volume 7.4 fL (6.9-10.8) Neutrophils (%) (Auto) 55.2 % (37.0-80.0) Lymphocytes (%) (Auto) 30.4 % (10.0-50.0) Monocytes (%) (Auto) 7.1 % (0.0-12.0) Eosinophils (%) (Auto) 6.5 % (0.0-7.0) Basophils (%) (Auto) 0.8 % (0.0-2.0) Neutrophils # (Auto) 5.1 10 ^3/uL (1.6-8.6) Lymphocytes # (Auto) 2.8 10 ^3/uL (0.4-5.4) Monocytes # (Auto) 0.7 10 ^3/uL (0-1.3) Eosinophils # (Auto) 0.6 10 ^3/uL (0-0.8) Basophils # (Auto) 0.1 10 ^3/uL (0-0.2) Nucleated Red Blood Cells 0.0 % Sodium Level 141 mmol/L (136-145) Potassium Level 4.2 mmol/L (3.5-5.1) Chloride Level 107 mmol/L (98-107) Carbon Dioxide Level 30 mmol/L (20-31) Anion Gap 4 (5-15) Blood Urea Nitrogen 13 mg/dL (9-23) Creatinine 0.74 mg/dL (0.550-1.02) Glomerular Filtration Rate Calc 99 mL/min (>90) BUN/Creatinine Ratio 17.6 (10.0-20.0) Serum Glucose 94 mg/dL (74-106) Hemoglobin A1c 5.7 % A1C (<5.7) Calcium Level 10.1 mg/dL (8.7-10.4) Thyroid Stimulating Hormone (TSH) 2.87 uIU/mL (0.55-4.78) Urine Color Light-yellow (Yellow) Urine Clarity Clear (Clear) Urine pH 7.0 (5.0-9.0) Urine Specific [place] 1.020 (1.001-1.035) Urine Protein Negative (Negative) Urine Ketones Negative (Negative) Urine Blood 1+ /uL (Negative) Urine Nitrite Negative (Negative) Urine Bilirubin Negative (Negative) Urine Urobilinogen Normal mg/dL (Negative) Urine Leukocyte Esterase Negative /uL (Negative) Urine RBC 17 /hpf (0 - 4) Urine WBC 1 /hpf (0 - 5) Urine Squamous Epithelial Cells Few /hpf (<5) Urine Bacteria None seen /hpf (None Seen) Urine Glucose Normal mg/dL (Normal) Urine Opiates Screen Neg (NEGATIVE) Urine Fentanyl Screen Neg (NEGATIVE) Urine Barbiturates Screen Neg (NEGATIVE) Urine Phencyclidine Screen Neg (NEGATIVE) Urine Amphetamines Screen Neg (NEGATIVE) Urine Benzodiazepines Screen Neg (NEGATIVE) Urine Cocaine Screen Neg (NEGATIVE) Urine Cannabinoids Screen Neg (NEGATIVE) Other Laboratory Tests 06/28/24 06:46 Brief Hx & Hospital Course: This is a 48-year-old male with past medical history of renal cyst, pacemaker and anxiety came to the hospital because of difficulty in urination and flank pain. Per patient, she has right-sided flank which is associated with dysuria, difficulty urination, urgency, and feeling of incomplete bladder emptying after micturition. The symptom has started 3 months back which has progressively worsened. Hospital course: CT abdomen showed, mild bladder wall thickening and urinalysis within normal range. Renal U/S revealed normal study. The patient was complaining of frequency, urgency and dysuria and was treated with IV ceftriaxone 1 g daily and was treated for possible interstitial cystitis with amitriptyline 10 mg p.o. at hs. Asymptomatic hypercalcemia was resolved after IV fluid rehydration. Discharge plan was discussed with the patient and all questions were answered . The patient is being discharged to home. Discharge diagosis: Possible interstitial cystitis Intractable bladder pain Asymptomatic hypercalcemia resolved History of Anxiety Discharge disposition: Home Medication: Amitriptyline 10 mg p.o. at HS for 30 days, Keflex 500 mg p.o. b.i.d. for 4 days and phenazopyridine 200 mg tablet p.o. t.i.d. for 4 days and continue home meds. Follow up: DC clinic in 1 week PCP in 1 to 2 weeks Outpatient Urology in 1 to 2 weeks Consults/Reason for consult No consultation was done Operations or Procedures TECHNIQUE: CT of the abdomen and pelvis was performed without intravenous contrast. This exam was performed according to our departmental dose optimization program. Up-to-date CT equipment and radiation dose reduction techniques are utilized as appropriate. [Radimetrics Exposure Report] CTDI: [CTDIvol] DLP: 810.39 WID: COMPARISON: CT abdomen and pelvis from 03/29/2023 FINDINGS: Lower Thorax: Partially imaged pacer leads in the right atrium and right ventricle. Normal-sized heart. Minimal linear bibasilar scarring. Lung bases are otherwise clear. Liver and Biliary system: Normal-sized liver. There is a hypodense lesion in segment 4B of the liver on series 2, image 23, not optimally evaluated without contrast. The gallbladder is normal caliber. There is no biliary ductal dilatation. Spleen: Unremarkable. Adrenal Glands and Kidneys: Normal adrenal glands. There is no hydronephrosis or nephrolithiasis. There is right lower pole renal scarring. Pancreas and Retroperitoneum: Unremarkable. Aorta and Major Vessels: Aortoiliac vessels are normal in caliber with mild calcified atherosclerotic plaque. Bowel, Mesentery and Peritoneal space: The small and large bowel loops are normal in caliber. Normal appendix. No free air or fluid collection. Pelvis: Urinary bladder is mildly thickened. The uterus and ovaries are grossly unremarkable. There is no pelvic lymphadenopathy. Abdominal wall and Osseous Structures: No destructive osseous lesion. IMPRESSION: 1. Mild bladder wall thickening, nonspecific. Correlate with urinalysis if there is clinical concern for cystitis. 2. Otherwise, No noncontrast evidence of acute abnormality. INDICATION: Pain TECHNIQUE: Multiple real-time sonographic images of the kidneys and bladder were obtained. COMPARISON: None FINDINGS: The right kidney measures 10.1 cm in length, which is normal in size. There is normal echogenicity of the right kidney. No hydronephrosis. Portions of the visualized right renal vein appear patent. The left kidney measures 10 0.6 cm in length, which is normal in size. There is normal echogenicity of the left kidney. No hydronephrosis. No large intraluminal masses are seen in the bladder. Prior to voiding the bladder volume measures volume 151 cc. IMPRESSION: 1. Normal sonographic appearance of the kidneys. No hydronephrosis Condition at Discharge: Stable Final Diagnosis/Problems List Possible interstitial cystitis Intractable bladder pain Asymptomatic hypercalcemia resolved History of Anxiety Discharge Disposition: Home Discharge Instruct/Medications Diet: Regular Activity: No Restrictions, As Tolerated Follow Up/Referral: Follow up with DC clinic in 1 week Follow up with the PCP in 1 to 2 weeks. Follow up with the Urology outpatient in 1 to 2 weeks. Medications: Keflex 250 mg qid for 4 days. Amitryptyline 10 mg at HS for 30 days. Phenazopyridine 200 mg t.i.d for 4 days. Discharge Statement: "Patient was advised to return to the ER or call 911 if any headaches, dizziness, shortness of breath, chest pain, abdominal pain, bleeding, fevers, or worsening of medical condition. Patient was counseled about treatment plan, medications, possible side effects, patientverbalized understanding. All questions were answered to the best of my ability. This discharge took greater then 30 minutes in planning, reviewing documentation, counseling the patient, and discussing with other team members." ASSESSMENT ASSESSMENT Assessment Possible interstitial cystitis Asymptomatic hypercalcemia resolved History of Anxiety Date of Service: Jun 29, 2024 Billing Provider: VIKY BUITRAGO MD Common Visit Codes: 41546-NXJ/OBS DISCH DAY >30min EDUARDO VALVERDE Jun 29, 2024 08:54 VIKY BUITRAGO MD Jul 02, 2024 16:45
[2024-06-29 09:00] VITALS: BP 96/46; PULSE 61; RESP 18; TEMP 98.9; O2SAT 91
[2024-06-29] MEDS: PARoxetine 20 MG TAB PO SCH (10:12)
[2024-06-29 10:35] VITALS: BP 96/46; PULSE 61; RESP 18; TEMP 98.1; TEMP 98.9; O2SAT 91
[2024-06-29] MEDS ORDERED: PHEN-922 PO (11:09)
[2024-06-29] MEDS ORDERED: AMIT-400 PO (11:09)
== END 2024-06-29 11:40 | disposition home or self-care (01) | DRG 463 ==
LOC: ER 15:48 → OVERFLOW 22:52 → CENTRAL 06-28 04:56
PROVIDERS: ADMIT Student in an Organized Health Care Education/Training Program; ATTEND Student in an Organized Health Care Education/Training Program
DX: N30.10 Interstitial cystitis (chronic) without hematuria (principal); E83.52 Hypercalcemia; F17.210 Nicotine dependence, cigarettes, uncomplicated; F32.A Depression, unspecified; F41.9 Anxiety disorder, unspecified; Z20.822 Contact with and (suspected) exposure to COVID-19; I10 Essential (primary) hypertension; R39.11 Hesitancy of micturition; N28.1 Cyst of kidney, acquired; Z66 Do not resuscitate; Z95.0 Presence of cardiac pacemaker; Z80.0 Family history of malignant neoplasm of digestive organs; Z87.442 Personal history of urinary calculi; Z79.899 Other long term (current) drug therapy; Z79.82 Long term (current) use of aspirin
CPT/HCPCS: 36415; 74176; 76775; 80048; 80307; 81001; 83036; 84443; 85025; 87086; 87426; 87804; G0378

== ENCOUNTER 2025-03-13 17:40 | Emergency (ER) | payer MEDICAID ==
[~2025-03-13] VITALS: Ht 160 cm; Wt 78.0 kg
[~2025-03-13 17:40] MED LIST changes: +AMIT-400 PO; -AMOX500C2 PO; -ASPI81CH43; -BUTA-259; +CEPH250C PO; -COROSUS EACH EAR; -CYCL-839 PO; -FLUD0.1T2 OR; -HYDR12.59; -MELO15TA29 PO; -MOTRIN PO; +PAR20T PO; +PHEN-922 PO; -VARE0.5P4
--- NOTE | 2025-03-13 18:02 | ED.PDOC ---
HPI Comments This is a 49 year old female presenting to the ED with chief complaint of chest pain. Patient reports that she has been experiencing left sided chest squeezing pain on Tuesday with associated radiation to the left arm, resolving later in the day. Patient relays that her pain returned the next day and continued until now with a tingling and burning sensation. Patient states her pain is reproducible with palpation of her chest. Patient notes having recent stress at home. Patient denies any abdominal pain, numbness, weakness, SOB, dizziness, headache, or N/V. Chief Complaint: Chest Pain Time Seen by MD: 17:56 Primary Care Provider: SARA Reviewed Notes: Nurses Notes, Medications, Allergies Allergies: Coded Allergies: NO KNOWN ALLERGIES (Unverified , 01/14/10) Home Meds Active Scripts Phenazopyridine HCl (Phenazopyridine Hydrochlo) 200 Mg Tab, 200 MG PO TID for 4 Days, #12 TAB 0 Refills Prov:AILYN VALVERDEHIRA RESIDENT 06/29/24 Amitriptyline Hcl (ELAVIL) 10 Mg Tb, 10 MG PO DAILY for 30 Days, #30 TAB 0 [facility] 06/29/24 Cephalexin (KEFLEX CAPSULE) 250 Mg Cp, 2 CAP PO BID for 4 Days, #16 CAP 0 [facility] 06/29/24 Reported Medications Paroxetine (PAXIL TABLET) 20 Mg Tb, 1 TAB PO DAILY, #30 TAB 3 Refills 06/28/24 Information Source: Patient Mode of Arrival: Ambulatory Severity: Moderate Timing: Days Duration: Since onset Prehospital treatment: None Location: Chest (L) Radiation: Arm (L) Quality: Squeezing, Burning Onset: At Rest Cardiac Risk Factors: HTN History of: Similar pain in past, ID Past Medical History PAST MEDICAL HISTORY: Anxiety, Depression, HTN, ID Surgical History: , Pacemaker 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: No Pertinent 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 Family History Family History: No family hx of Cancer Social History Smoker: Cigarettes, Less Than 1 Pack/Day Alcohol: Denies ETOH Use Drugs: Denies Drug Use Lives In: Home Constitutional: denies: chills, diaphoresis, fatigue, fever, malaise, sweats, weakness, others EENTM: denies: blurred vision, double vision, ear bleeding, ear discharge, ear drainage, ear pain, ear ringing, eye pain, eye redness, hearing loss, mouth pain, mouth swelling, nasal discharge, nose bleeding, nose congestion, nose pain, photophobia, tearing, throat pain, throat swelling, voice changes, others Respiratory: denies: cough, hemoptysis, orthopnea, SOB at rest, shortness of breath, SOB with excertion, stridor, wheezing, others Cardiovascular: reports: chest pain, left arm pain; denies: dizzy spells, diaphoresis, Dyspnea on exertion, edema, irregular heart beat, lightheadedness, palpitations, PND, syncope, others Gastrointestinal: denies: abdomen distended, abdominal pain, blood streaked bowels, constipated, diarrhea, dysphagia, difficulty swallowing, hematemesis, melena, nausea, poor appetite, poor fluid intake, rectal bleeding, rectal pain, vomiting, others Genitourinary: denies: abnormal vagina bleeding, burning, dyspareunia, dysuria, flank pain, frequency, hematuria, incontinence, pain, , vagina discharge, urgency, others Neurological: denies: dizziness, fainting, headache, left sided numbness, left sided weakness, numbness, paresthesia, pre-existing deficit, right sided numbness, right sided weakness, seizure, speech problems, tingling, tremors, weakness, others Musculoskeletal: denies: back pain, gout, joint pain, joint swelling, muscle pain, muscle stiffness, neck pain, others Integumetry: denies: bruises, change in color, change in hair/nails, dryness, laceration, lesions, lumps, rash, wounds, others Allergic/Immunocompromised: denies: Difficulty Healing, Frequent Infections, Hives, Itching, others Hematologic/Lymphatic: denies: anemia, blood clots, easy bleeding, easy bruising, swollen glands, others Endocrine: denies: excessive hunger, excessive sweating, excessive thirst, excessive urination, flushing, intolerance to cold, intolerance to heat, unexplained weight gain, unexplained weight loss, others Psychiatric: denies: anxiety, bipolar disorder, depression, hopeless, panic disorder, schizophrenia, sleepless, suicidal, others All Other Systems: Reviewed and Negative Physical Exam General Appearance: No Apparent Distress, Normal HEENT: Normal ENT Inspection, Pharynx Normal, TMs Normal Neck: Full Range of Motion, Non-Tender, Normal, Normal Inspection Respiratory: Chest Non-Tender, Lungs Clear, No Accessory Muscle Use, No Respiratory Distress, Normal Breath Sounds Cardiovascular: No Edema, No JVD, No Murmur, No Gallop, Normal Peripheral Pulses, Regular Rate/Rhythm Breast Exam: Deferred Gastrointestinal: No Organomegaly, Non Tender, No Pulsatile Mass, Normal Bowel Sounds, Soft Genitalia: Deferred Pelvic: Deferred Rectal: Deferred Extremities: No calf tenderness, Normal capillary refill, Normal inspection, Normal range of motion, Non-tender, No pedal edema Musculoskeletal : Apperance: Normal 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 Was a procedure done?: No CP Differential Dx Differential Diagnosis: Electrolyte Disorder, Hyperventilation, ID, Pacemaker Malfunction, Pulmonary Embolus X-Ray, Labs, Meds, VS Vital Signs Date Time Temp Pulse Resp B/P (MAP) Pulse Ox O2 Delivery O2 Flow Rate FiO2 03/13/25 18:59 66 03/13/25 17:46 66 03/13/25 17:44 98.4 66 18 123/68 97 98.4 Lab Test 03/13/25 19:24 03/13/25 18:46 03/13/25 18:21 Range/Units Troponin I High Sensitivity 5 < 3 L </=34 ng/L Urine Color Light-yellow Yellow Urine Clarity Clear Clear Urine pH 6.0 5.0-9.0 Urine Specific [place] 1.011 1.001-1.035 Urine Protein Negative Negative Urine Ketones Negative Negative Urine Blood 1+ H Negative /uL Urine Nitrite Negative Negative Urine Bilirubin Negative Negative Urine Urobilinogen Normal Negative mg/dL Urine Leukocyte Esterase Negative Negative /uL Urine RBC 5 0 - 4 /hpf Urine Microscopic WBC < 1 0-5 /HPF Urine Squamous Epithelial Cells Few <5 /hpf Urine Bacteria Few H None Seen /hpf Urine Glucose Normal Normal mg/dL White Blood Count 9.5 4.4-10.8 10^3/uL Red Blood Count 4.58 4.0-5.20 10^6/uL Hemoglobin 14.5 12.2-16.2 g/dL Hematocrit 41.7 36.0-46.0 % Mean Corpuscular Volume 91.2 80.0-100.0 fL Mean Corpuscular Hemoglobin 31.6 28.0-32.0 pg Mean Corpuscular Hemoglobin Concent 34.6 32.0-36.0 g/dL Red Cell Distribution Width 13.6 11.8-14.3 % Platelet Count 372 140-450 10^3/uL Mean Platelet Volume 7.3 6.9-10.8 fL Neutrophils (%) (Auto) 54.4 37.0-80.0 % Lymphocytes (%) (Auto) 34.5 10.0-50.0 % Monocytes (%) (Auto) 6.1 0.0-12.0 % Eosinophils (%) (Auto) 4.2 0.0-7.0 % Basophils (%) (Auto) 0.8 0.0-2.0 % Neutrophils # (Auto) 5.1 1.6-8.6 10 ^3/uL Lymphocytes # (Auto) 3.3 0.4-5.4 10 ^3/uL Monocytes # (Auto) 0.6 0-1.3 10 ^3/uL Eosinophils # (Auto) 0.4 0-0.8 10 ^3/uL Basophils # (Auto) 0.1 0-0.2 10 ^3/uL Nucleated Red Blood Cells 0.0 % Sodium Level 141 136-145 mmol/L Potassium Level 4.1 3.5-5.1 mmol/L Chloride Level 107 98-107 mmol/L Carbon Dioxide Level 26 20-31 mmol/L Anion Gap 8 5-15 Blood Urea Nitrogen 10 9-23 mg/dL Creatinine 0.84 0.550-1.02 mg/dL Glomerular Filtration Rate Calc 84 >90 mL/min BUN/Creatinine Ratio 11.9 10.0-20.0 Serum Glucose 89 74-106 mg/dL Calcium Level 9.7 8.7-10.4 mg/dL X-Ray, Labs, Meds, VS Comment Imaging was reviewed by this provider, there is no obvious pathological or acute disease process. Pending radiology review Labs were reviewed by this provider, no abnormalities Vital signs reviewed by this provider, clinically stable Time of 1ST Reevaluation: 18:55 Reevaluation 1ST: Unchanged Patient Education/Counseling: Diagnosis, Treatment, Need For Follow Up (Follow up with PCP as needed. Return to the emergency department if symptoms worsen.) Family Education/Counseling: No Family Present SEPSIS Sepsis Screen Date sepsis recognized/suspect: Mar 13, 2025 Time Sepsis recognized/suspect: 1734 Recent Procedure: No On Antibiotic Therapy: No Respiratory Rate >20: No Heart Rate >90: No Temp<36 C (96.8 F) or >38.3 C: No SBP <90 or MAP <65 mmHG: No New Acute Mental Status Change: No Is the patient on CPAP, BIPAP,: No Physician Orders Chest Portable (03/13/25 18:02) Vital Signs Date Time Temp Pulse Resp B/P (MAP) Pulse Ox O2 Delivery O2 Flow Rate FiO2 03/13/25 18:59 66 03/13/25 17:46 66 03/13/25 17:44 98.4 66 18 123/68 97 98.4 Laboratory Tests Test 03/13/25 18:21 White Blood Count 9.5 10^3/uL (4.4-10.8) Departure 1 Departure Time of Disposition: 20:15 Impression: Primary Impression: Musculoskeletal chest pain Disposition: 01 HOME / SELF CARE / HOMELESS Condition: Fair Discharged With: Self Critical Care Note Critical Care Time?: No Stability Stability form required: No Heart Score Heart Score: Heart Score Response (Comments) Value History Highly Suspicious 2 EKG Normal 0 Age 45-64 1 Risk Factors 1 or 2 risk factors 1 Troponin Normal limit 0 Total 4 I personally scribed for NIKIA HANSON ([email or web address]) on 03/13/25 at 18:02. Electronically submitted by Kuldeep Moses ([email or web address]). NIKIA HANSON Mar 13, 2025 18:02
--- NOTE | 2025-03-13 18:37 | DVH ---
INDICATION: cp TECHNIQUE: Frontal view of the chest. COMPARISON: XY CHEST XRAY 1 VIEW on DOS: 12/26/22 FINDINGS: Left-sided pacemaker.. The heart and mediastinal contours are grossly unremarkable. There is no evid ence of pleural disease. The lungs are clear. The bony structures of the chest are intact without fracture. IMPRESSION: 1. No evidence of acute disease.
[2025-03-13 18:45] LABS: Hematocrit 41.7 % (36.0-46.0); Hemoglobin 14.5 g/dL (12.2-16.2); Mean Corpuscular Hemoglobin 31.6 pg (28.0-32.0); Mean Corpuscular Volume 91.2 fL (80.0-100.0); Nucleated Red Blood Cells % 0.0 %
[2025-03-13 18:52] LABS: Potassium 4.1 mmol/L (3.5-5.1); Sodium 141 mmol/L (136-145)
[2025-03-13 18:53] LABS: Anion Gap 8 (5-15); Calcium 9.7 mg/dL (8.7-10.4); Carbon Dioxide 26 mmol/L (20-31)
--- NOTE | 2025-03-13 18:54 | ECG ---
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
[2025-03-13 18:58] LABS: BUN/Creatinine Ratio 11.9 (10.0-20.0); Blood Urea Nitrogen 10 mg/dL (9-23); Glucose 89 mg/dL (74-106)
[2025-03-13 19:04] LABS: Urine Protein, UAD Negative (Negative)
[2025-03-13 19:07] LABS: Chloride 107 mmol/L (98-107)
[2025-03-13 21:12] VITALS: BP 127/52; PULSE 60; RESP 20; TEMP 98.4; O2SAT 99
--- NOTE | 2025-03-28 07:18 | ECG ---
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
--- NOTE | 2025-03-28 07:18 | ECG ---
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
== END 2025-03-13 22:15 | disposition home or self-care (01) ==
LOC: ER 17:40
DX: R07.89 Other chest pain (principal); F17.210 Nicotine dependence, cigarettes, uncomplicated; F32.A Depression, unspecified; F41.9 Anxiety disorder, unspecified; I10 Essential (primary) hypertension; Z79.899 Other long term (current) drug therapy; Z95.0 Presence of cardiac pacemaker; Z98.890 Other specified postprocedural states
CPT/HCPCS: 36415; 71045; 80048; 81001; 84484; 85025; 93005